=== PATIENT | male | born 1945 | race Caucasian/White ===

== ENCOUNTER 2021-05-23 13:34 | Inpatient (IN) | payer OTHER ==
[2021-05-23] MEDS ORDERED: MAGNESIUM CITRATE 300 ML BOTTLE PO PRN (14:35)
[2021-05-23] MEDS ORDERED: ACETAMINOPHEN 325 MG TABLET (FP) PO PRN (14:35)
[2021-05-23] MEDS ORDERED: IBUPROFEN 400 MG TABLET (FP) PO PRN (14:35)
[2021-05-23] MEDS ORDERED: BISMUTH SUBSALICYLATE 524 MG/30 ML PO PRN (14:35)
[2021-05-23] MEDS ORDERED: chlordiazePOXIDE HCL 25 MG CAPSULE PO PRN (14:35)
[2021-05-23] MEDS ORDERED: NICOTINE 10 MG CARTRIDGE (INHALER) IH PRN (14:35)
[2021-05-23] MEDS ORDERED: MAG HYDROX/AL HYDROX/SIMETH 30 ML UNIT-DOSE CUP PO PRN (14:35)
[2021-05-23] MEDS ORDERED: MAGNESIUM HYDROX 2400MG/30ML ORAL SUSPENSION 30 ML CUP PO PRN (14:35)
[2021-05-23] MEDS ORDERED: ONDANSETRON *ODT* 4 MG TABLET SL PRN (14:35)
[2021-05-23] MEDS ORDERED: MENTHOL/PHENOL 1 EACH UD MM PRN (14:35)
[2021-05-23 15:09] VITALS: BMI 25.0
[2021-05-23] MEDS: chlordiazePOXIDE HCL 25 MG CAPSULE PO SCH ×2 (17:48→22:13)
[2021-05-23] MEDS: hydrOXYzine PAMOATE 25 MG CAPSULE (FP) PO SCH ×2 (17:49→22:13)
[2021-05-23] MEDS: THIAMINE HCL 100 MG TABLET (FP) PO SCH (22:13)
[2021-05-23] MEDS: MELATONIN 5 MG TABLETS PO SCH (22:14)
[2021-05-24] MEDS: chlordiazePOXIDE HCL 25 MG CAPSULE PO SCH ×4 (05:26→22:13)
[2021-05-24] MEDS: hydrOXYzine PAMOATE 25 MG CAPSULE (FP) PO SCH ×5 (05:26→22:12)
[2021-05-24 09:52] LABS: HEMATOCRIT 34.4 % (35.4-49); HEMOGLOBIN 11.7 GM/dL (11.7-16.9); MCH 35.5 pg (25.7-33.7); MEAN CELL VOLUME 104.5 fl (80-96); MEAN PLT VOLUME 8.6 fl (7.5-11.1); PLATELET COUNT 87 10^3/uL (134-434); RBC 3.29 M/mm3 (4.00-5.60); RDW 13.1 % (11.9-15.9); WHITE BLOOD COUNT 3.6 K/mm3 (4.0-10.0)
[2021-05-24 10:22] LABS: CALCIUM 8.6 mg/dL (8.5-10.1)
[2021-05-24 10:23] LABS: ALBUMIN 2.8 g/dl (3.4-5.0); BLOOD UREA NITROGEN 19.4 mg/dL (7-18)
[2021-05-24] MEDS: PRENATAL VITAMINS W/ FOLIC ACID TABLET (FP) PO SCH (10:24)
[2021-05-24 10:26] LABS: CREATININE 0.9 mg/dL (0.55-1.3)
[2021-05-24 10:27] LABS: BILIRUBIN,TOTAL 0.8 mg/dL (0.2-1); TOT PROT 6.2 g/dl (6.4-8.2)
[2021-05-24] MEDS: RIVAROXABAN 20 MG TABLET PO SCH (18:09)
[2021-05-24] MEDS: ACETAMINOPHEN 325 MG TABLET (FP) PO PRN (18:11)
[2021-05-24] MEDS: THIAMINE HCL 100 MG TABLET (FP) PO SCH (22:12)
[2021-05-24] MEDS: MELATONIN 5 MG TABLETS PO SCH (22:12)
[2021-05-25] MEDS: hydrOXYzine PAMOATE 25 MG CAPSULE (FP) PO SCH ×5 (05:09→22:34)
[2021-05-25] MEDS: chlordiazePOXIDE HCL 25 MG CAPSULE PO SCH ×4 (05:10→22:35)
[2021-05-25] MEDS: METHOCARBAMOL 500 MG TABLET PO PRN ×2 (05:10→22:35)
[2021-05-25] MEDS: PRENATAL VITAMINS W/ FOLIC ACID TABLET (FP) PO SCH (10:05)
[2021-05-25] MEDS: RIVAROXABAN 20 MG TABLET PO SCH (18:09)
[2021-05-25] MEDS: ACETAMINOPHEN 325 MG TABLET (FP) PO PRN (18:10)
[2021-05-25] MEDS: THIAMINE HCL 100 MG TABLET (FP) PO SCH (22:34)
[2021-05-25] MEDS: MELATONIN 5 MG TABLETS PO SCH (22:35)
[2021-05-26] MEDS ORDERED: chlordiazePOXIDE HCL 10 MG CAPSULE PO PRN
[2021-05-26] MEDS: chlordiazePOXIDE HCL 10 MG CAPSULE PO SCH ×4 (05:52→22:11)
[2021-05-26] MEDS: hydrOXYzine PAMOATE 25 MG CAPSULE (FP) PO SCH ×5 (05:52→22:12)
[2021-05-26] MEDS: PRENATAL VITAMINS W/ FOLIC ACID TABLET (FP) PO SCH (10:04)
[2021-05-26 10:35] LABS: HEMATOCRIT 35.2 % (35.4-49); HEMOGLOBIN 12.1 GM/dL (11.7-16.9); MCH 35.6 pg (25.7-33.7); MCHC 34.5 g/dl (32.0-35.9); MEAN CELL VOLUME 103.1 fl (80-96); MEAN PLT VOLUME 8.8 fl (7.5-11.1); PLATELET COUNT 104 10^3/uL (134-434); RBC 3.41 M/mm3 (4.00-5.60); RDW 13.2 % (11.9-15.9)
[2021-05-26 11:00] LABS: INR 1.26 (0.83-1.09); PROTHROMBIN TIME (PATIENT) 14.2 SEC (9.7-13.0)
[2021-05-26] MEDS: RIVAROXABAN 20 MG TABLET PO SCH (18:07)
[2021-05-26] MEDS: ACETAMINOPHEN 325 MG TABLET (FP) PO PRN (18:09)
[2021-05-26] MEDS: MELATONIN 5 MG TABLETS PO SCH (22:11)
[2021-05-26] MEDS: THIAMINE HCL 100 MG TABLET (FP) PO SCH (22:12)
[2021-05-27] MEDS: hydrOXYzine PAMOATE 25 MG CAPSULE (FP) PO SCH ×5 (06:12→23:19)
[2021-05-27] MEDS: chlordiazePOXIDE HCL 10 MG CAPSULE PO SCH ×3 (06:12→18:19)
[2021-05-27] MEDS: PRENATAL VITAMINS W/ FOLIC ACID TABLET (FP) PO SCH (11:16)
[2021-05-27] MEDS: RIVAROXABAN 20 MG TABLET PO SCH (18:21)
[2021-05-27] MEDS: THIAMINE HCL 100 MG TABLET (FP) PO SCH (23:19)
[2021-05-27] MEDS: MELATONIN 5 MG TABLETS PO SCH (23:19)
[2021-05-28] MEDS ORDERED: chlordiazePOXIDE HCL 10 MG CAPSULE PO ONE (05:00)
[2021-05-28] MEDS: hydrOXYzine PAMOATE 25 MG CAPSULE (FP) PO SCH ×5 (06:00→22:11)
[2021-05-28] MEDS: PRENATAL VITAMINS W/ FOLIC ACID TABLET (FP) PO SCH (10:19)
[2021-05-28] MEDS: RIVAROXABAN 20 MG TABLET PO SCH (18:06)
[2021-05-28] MEDS: THIAMINE HCL 100 MG TABLET (FP) PO SCH (22:11)
[2021-05-28] MEDS: MELATONIN 5 MG TABLETS PO SCH (22:11)
[2021-05-29] MEDS: hydrOXYzine PAMOATE 25 MG CAPSULE (FP) PO SCH ×3 (06:50→14:52)
[2021-05-29] MEDS: PRENATAL VITAMINS W/ FOLIC ACID TABLET (FP) PO SCH (09:49)
[2021-05-29] MEDS: ACETAMINOPHEN 325 MG TABLET (FP) PO PRN ×2 (09:50→21:53)
[2021-05-29] MEDS: RIVAROXABAN 20 MG TABLET PO SCH (17:44)
[2021-05-29] MEDS: MELATONIN 5 MG TABLETS PO SCH (21:52)
[2021-05-29] MEDS: THIAMINE HCL 100 MG TABLET (FP) PO SCH (21:52)
[2021-05-29] MEDS ORDERED: PT OWN MED DRAWER 7, Y5N ONE (22:10)
[2021-05-30] MEDS: PRENATAL VITAMINS W/ FOLIC ACID TABLET (FP) PO SCH (10:05)
[2021-05-30] MEDS ORDERED: MECLIZINE HCL 12.5 MG TABLET PO PRN (11:36)
[2021-05-30] MEDS ORDERED: COLCHICINE 0.6 MG CAPSULE PO SCH (11:45)
[2021-05-30] MEDS: RIVAROXABAN 20 MG TABLET PO SCH (18:07)
[2021-05-30] MEDS ORDERED: PT OWN MED DRAWER 7, Y5N ONE (18:07)
[2021-05-30] MEDS: MELATONIN 5 MG TABLETS PO SCH (22:00)
[2021-05-30] MEDS: THIAMINE HCL 100 MG TABLET (FP) PO SCH (22:00)
[2021-05-31] MEDS ORDERED: PT OWN MED DRAWER 7, Y5N ONE ×2 (08:08→18:25)
[2021-05-31] MEDS: PRENATAL VITAMINS W/ FOLIC ACID TABLET (FP) PO SCH (09:38)
[2021-05-31] MEDS: COLCHICINE 0.6 MG TAB PO SCH (09:38)
[2021-05-31] MEDS: ACETAMINOPHEN 325 MG TABLET (FP) PO PRN ×2 (09:40→21:41)
[2021-05-31] MEDS: RIVAROXABAN 20 MG TABLET PO SCH (18:26)
[2021-05-31] MEDS: THIAMINE HCL 100 MG TABLET (FP) PO SCH (21:40)
[2021-05-31] MEDS: MELATONIN 5 MG TABLETS PO SCH (21:40)
[2021-06-01] MEDS: COLCHICINE 0.6 MG TAB PO SCH (09:45)
[2021-06-01] MEDS: PRENATAL VITAMINS W/ FOLIC ACID TABLET (FP) PO SCH (09:46)
[2021-06-01] MEDS: ACETAMINOPHEN 325 MG TABLET (FP) PO PRN ×2 (09:46→18:00)
[2021-06-01 14:07] LABS: SARS-CoV-2 NAA Not Detected (Not Detected)
[2021-06-01] MEDS ORDERED: PT OWN MED DRAWER 7, Y5N ONE (17:09)
[2021-06-01] MEDS: RIVAROXABAN 20 MG TABLET PO SCH (17:52)
[2021-06-01] MEDS: MELATONIN 5 MG TABLETS PO SCH (22:11)
[2021-06-01] MEDS: THIAMINE HCL 100 MG TABLET (FP) PO SCH (22:11)
[2021-06-02] MEDS ORDERED: PT OWN MED DRAWER 7, Y5N ONE ×2 (08:44→18:27)
[2021-06-02] MEDS: COLCHICINE 0.6 MG TAB PO SCH (09:41)
[2021-06-02] MEDS: PRENATAL VITAMINS W/ FOLIC ACID TABLET (FP) PO SCH (09:42)
[2021-06-02] MEDS: ACETAMINOPHEN 325 MG TABLET (FP) PO PRN (09:43)
[2021-06-02] MEDS: RIVAROXABAN 20 MG TABLET PO SCH (18:07)
[2021-06-02] MEDS: THIAMINE HCL 100 MG TABLET (FP) PO SCH (21:45)
[2021-06-02] MEDS: MELATONIN 5 MG TABLETS PO SCH (21:45)
[2021-06-03] MEDS ORDERED: PT OWN MED DRAWER 7, Y5N ONE ×2 (08:39→18:02)
[2021-06-03] MEDS: PRENATAL VITAMINS W/ FOLIC ACID TABLET (FP) PO SCH (10:00)
[2021-06-03] MEDS: ACETAMINOPHEN 325 MG TABLET (FP) PO PRN (10:00)
[2021-06-03] MEDS: COLCHICINE 0.6 MG TAB PO SCH (10:00)
[2021-06-03] MEDS: RIVAROXABAN 20 MG TABLET PO SCH (18:03)
[2021-06-03] MEDS: MELATONIN 5 MG TABLETS PO SCH (21:43)
[2021-06-03] MEDS: THIAMINE HCL 100 MG TABLET (FP) PO SCH (21:43)
[2021-06-04] MEDS: PRENATAL VITAMINS W/ FOLIC ACID TABLET (FP) PO SCH (09:26)
[2021-06-04] MEDS: ACETAMINOPHEN 325 MG TABLET (FP) PO PRN ×2 (09:26→17:37)
[2021-06-04] MEDS: COLCHICINE 0.6 MG TAB PO SCH (09:26)
[2021-06-04] MEDS ORDERED: PT OWN MED DRAWER 7, Y5N ONE (17:17)
[2021-06-04] MEDS: RIVAROXABAN 20 MG TABLET PO SCH (17:34)
[2021-06-04] MEDS: THIAMINE HCL 100 MG TABLET (FP) PO SCH (21:11)
[2021-06-04] MEDS: MELATONIN 5 MG TABLETS PO SCH (21:12)
[2021-06-05] MEDS ORDERED: PT OWN MED DRAWER 7, Y5N ONE ×2 (08:40→17:11)
[2021-06-05] MEDS: COLCHICINE 0.6 MG TAB PO SCH (09:39)
[2021-06-05] MEDS: PRENATAL VITAMINS W/ FOLIC ACID TABLET (FP) PO SCH (09:40)
[2021-06-05] MEDS: RIVAROXABAN 20 MG TABLET PO SCH (17:57)
[2021-06-05] MEDS: THIAMINE HCL 100 MG TABLET (FP) PO SCH (22:19)
[2021-06-05] MEDS: MELATONIN 5 MG TABLETS PO SCH (22:19)
[2021-06-06] MEDS: PRENATAL VITAMINS W/ FOLIC ACID TABLET (FP) PO SCH (09:36)
[2021-06-06] MEDS: COLCHICINE 0.6 MG TAB PO SCH (09:36)
[2021-06-06] MEDS ORDERED: PT OWN MED DRAWER 7, Y5N ONE (17:12)
[2021-06-06] MEDS: RIVAROXABAN 20 MG TABLET PO SCH (17:23)
[2021-06-06] MEDS: THIAMINE HCL 100 MG TABLET (FP) PO SCH (17:23)
[2021-06-06] MEDS: MELATONIN 5 MG TABLETS PO SCH (21:52)
[2021-06-07] MEDS: COLCHICINE 0.6 MG TAB PO SCH (09:43)
[2021-06-07] MEDS: PRENATAL VITAMINS W/ FOLIC ACID TABLET (FP) PO SCH (09:43)
[2021-06-07] MEDS ORDERED: PT OWN MED DRAWER 7, Y5N ONE (17:03)
[2021-06-07] MEDS: THIAMINE HCL 100 MG TABLET (FP) PO SCH (17:34)
[2021-06-07] MEDS: RIVAROXABAN 20 MG TABLET PO SCH (17:34)
[2021-06-07] MEDS: MELATONIN 5 MG TABLETS PO SCH (22:27)
[2021-06-08] MEDS ORDERED: PT OWN MED DRAWER 7, Y5N ONE ×2 (09:35→17:00)
[2021-06-08] MEDS: PRENATAL VITAMINS W/ FOLIC ACID TABLET (FP) PO SCH (10:15)
[2021-06-08] MEDS: COLCHICINE 0.6 MG TAB PO SCH (10:15)
[2021-06-08] MEDS: THIAMINE HCL 100 MG TABLET (FP) PO SCH (17:16)
[2021-06-08] MEDS: RIVAROXABAN 20 MG TABLET PO SCH (17:16)
[2021-06-08] MEDS: MELATONIN 5 MG TABLETS PO SCH (22:10)
[2021-06-09 08:41] VITALS: BP 152/82; PULSE 79; TEMP 97.4
[2021-06-09] MEDS ORDERED: HYDROCORTISONE 0.5% TOPICAL CREAM 30 GM TUBE TP PRN (09:06)
[2021-06-09] MEDS: PRENATAL VITAMINS W/ FOLIC ACID TABLET (FP) PO SCH (09:14)
[2021-06-09] MEDS: COLCHICINE 0.6 MG TAB PO SCH (09:14)
[2021-06-09] MEDS ORDERED: PT OWN MED DRAWER 7, Y5N ONE (16:31)
[2021-06-09] MEDS: RIVAROXABAN 20 MG TABLET PO SCH (17:15)
[2021-06-09] MEDS: THIAMINE HCL 100 MG TABLET (FP) PO SCH (17:15)
== END 2021-06-09 21:00 | disposition home or self-care (01) | DRG 895 ==
LOC: YASAS 13:34 → Y3N 15:58 → Y3E 05-28 19:44 → Y3W 06-06 14:29
PROVIDERS: ADMIT Allergy & Immunology; ATTEND Allergy & Immunology
PROC: HZ2ZZZZ Detoxification Services for Substance Abuse Treatment (ICD-10-PCS; 2021-05-23)
PROC: HZ42ZZZ Group Counseling for Substance Abuse Treatment, Cognitive-Behavioral (ICD-10-PCS; principal; 2021-05-28)
DX: F10.20 Alcohol dependence, uncomplicated (principal); U07.1 COVID-19; D69.6 Thrombocytopenia, unspecified; D72.819 Decreased white blood cell count, unspecified; M10.9 Gout, unspecified; R42 Dizziness and giddiness; R21 Rash and other nonspecific skin eruption; Z86.73 Personal history of transient ischemic attack (TIA), and cerebral infarction without residual deficits; Z86.711 Personal history of pulmonary embolism; Z79.01 Long term (current) use of anticoagulants; Z99.89 Dependence on other enabling machines and devices
CPT/HCPCS: 36415; 80053; 85027; 85610; 86780; C9803; U0003; U0005